=== PATIENT | male | born 1960 | race Asian ===

== ENCOUNTER 2023-11-15 08:52 | Day surgery (SDC) | payer OTHER ==
[~2023-11-15] VITALS: Ht 165.1 cm; Wt 70.3 kg
[2023-11-15] MEDS ORDERED: fentaNYL citrate 0.05 MG/ML VIAL ONE (09:20)
[2023-11-15] MEDS ORDERED: LIDOCAINE 2% 100 MG/5 ML UJET TP ONE (09:20)
[2023-11-15] MEDS: fentaNYL citrate 0.05 MG/ML VIAL IVP ONE (09:35)
[2023-11-15] MEDS ORDERED: MIDAZOLAM 2 MG/2 ML VIAL IVP ONE (12:05)
== END 2023-11-15 11:05 | disposition home or self-care (01) ==
LOC: MDS 08:52 → MMU 08:53 → MDS 11:05
PROVIDERS: ATTEND Internal Medicine Gastroenterology
DX: Z12.11 Encounter for screening for malignant neoplasm of colon (principal); I10 Essential (primary) hypertension; E78.5 Hyperlipidemia, unspecified; Z87.891 Personal history of nicotine dependence; Z98.890 Other specified postprocedural states
CPT/HCPCS: 45378; J3010